=== PATIENT | female | born 1965 | race Caucasian/White ===

== ENCOUNTER → 2019-12-09 07:34 | Outpatient (BNVA) | payer OTHER, SELFPAY | PROVIDERS: PCP Nurse Practitioner Family; Referring Provider Nurse Practitioner Family; Visit Provider Surgery Vascular Surgery | DX: I83.11 Varicose veins of right lower extremity with inflammation (principal) | CPT/HCPCS: 36482 ==

== ENCOUNTER 2019-12-12 15:25 | Outpatient (REF) | payer OTHER, SELFPAY ==
--- NOTE | 2019-12-12 15:39 | US_ITS ---
EXAMINATION: US VENOUS ULTRASOUND WITH DOPPLER LOWER EXTREMITY, RIGHT CLINICAL INFORMATION: Post venaseal procedure COMPARISON: Previous exam September 2019 TECHNIQUE: Ultrasound of the deep veins is performed from the hip to the calf with compression sonography and color and pulse Doppler assessment. Spectral analysis with color-flow imaging is performed. FINDINGS: There is normal venous compression and respiratory variation and augmented flow. The visualized common femoral vein, superficial femoral vein, profunda femoral vein, popliteal vein, and the trifurcation region shows no evidence of deep venous thrombosis. There is echogenic material seen in the right greater saphenous vein 1.4 cm from the saphenofemoral junction post venaseal procedure. There is no significant popliteal fossa cyst. US/US venous duplex LE RT IMPRESSION: No DVT demonstrated in the right lower extremity. Echogenic material in the right greater saphenous vein 1.4 cm from the saphenofemoral junction post venaseal procedure.
== END 2019-12-12 15:26 | disposition home or self-care (01) ==
LOC: HO.US 15:25
PROVIDERS: PCP Nurse Practitioner Family; Visit Provider Surgery Vascular Surgery
DX: M79.604 Pain in right leg (principal); Z98.890 Other specified postprocedural states
CPT/HCPCS: 93971

== ENCOUNTER → 2020-01-02 09:48 | Outpatient (BNVA) | payer OTHER, SELFPAY | PROVIDERS: Visit Provider Surgery Vascular Surgery | DX: Z76.89 Persons encountering health services in other specified circumstances (principal) ==

== ENCOUNTER 2020-04-27 12:49 | Outpatient (REF) | payer OTHER, SELFPAY ==
--- NOTE | ~2020-04-27 | XR_ITS ---
EXAMINATION: XR SHOULDER, RIGHT CLINICAL INFORMATION: Pain COMPARISON: Previous x-ray May 2017 TECHNIQUE: AP external rotation, Grashey, scapular Y, and axillary views of the right shoulder. FINDINGS: Bone alignment is normal. No fracture or dislocation is seen. The glenohumeral joint is normal. There is arthritis at the acromion clavicular joint. Soft tissues are unremarkable. XR/XR shoulder RT min 2V IMPRESSION: Arthritis at the acromioclavicular joint.
== END 2020-04-27 12:50 | disposition home or self-care (01) ==
LOC: HO.XRAY 12:49
PROVIDERS: PCP Family Medicine; Visit Provider Family Medicine
DX: M25.511 Pain in right shoulder (principal)
CPT/HCPCS: 73030

== ENCOUNTER 2021-01-23 09:16 | Outpatient (REF) | payer OTHER, SELFPAY ==
--- NOTE | 2021-01-23 | EMG_ITS ---
This is a 55-year-old woman with a few month history of bilateral upper extremity pain, numbness, and tingling, that has been going on for 6 months. Neurological examination is normal. No Tinel or Phalen sign. IMPRESSION: Carpal tunnel syndrome. Nerve conduction EMG study: Moderate carpal tunnel syndrome bilaterally. Normal EMG of the C5-T1 innervated muscles except for mild chronic neuropathic changes in the abductor pollicis brevis from chronic median neuropathy. MD CAS Vick/ELIANE / [id number]
== END 2021-01-23 09:17 | disposition home or self-care (01) ==
LOC: HO.NEURO 09:16
PROVIDERS: PCP Family Medicine; Visit Provider Family Medicine
DX: R20.0 Anesthesia of skin (principal)
CPT/HCPCS: 95886; 95913

== ENCOUNTER 2021-05-10 12:24 | Outpatient (REF) | payer OTHER, SELFPAY ==
--- NOTE | ~2021-05-10 | MM_ITS ---
EXAMINATION: MM SCREENING DIGITAL BREAST TOMOSYNTHESIS, BILATERAL CLINICAL INFORMATION: Screening. Asymptomatic. The lifetime risk of breast cancer based on the Tyrer-Cuzick Model is 6%. COMPARISON: Mammography: 06/16/2018, 08/19/2016, 02/15/2015 TECHNIQUE: Digital breast tomosynthesis is performed in both the craniocaudal and mediolateral oblique views along with computer-aided detection (CAD). Synthesized 2D images are generated from the tomosynthesis. Additional exaggerated right CC view is provided. FINDINGS: There are scattered areas of fibroglandular density (ACR BI-RADS breast composition Category b). Parenchymal pattern is similar to prior studies. Circumscribed nodules posterior inner and anterior outer right breast are both stable. There is no developing density or architectural abnormality in either breast. No abnormal calcifications. The axilla and skin contours are unremarkable. No significant changes. MM/MM tomosynthesis screening BI IMPRESSION: No mammographic evidence of malignancy. ASSESSMENT: BI-RADS 2: Benign RECOMMENDATION: Routine annual mammography screening. This patient's information was entered into a reminder system with a target due date for their next mammogram.
== END 2021-05-10 12:25 | disposition home or self-care (01) ==
LOC: HO.MAMMO 12:24
PROVIDERS: Visit Provider Family Medicine
DX: Z12.31 Encounter for screening mammogram for malignant neoplasm of breast (principal)
CPT/HCPCS: 77063; 77067

== ENCOUNTER → 2022-02-27 13:59 | Outpatient (BNVA) | payer OTHER, SELFPAY | PROVIDERS: PCP Family Medicine; Visit Provider Surgery Vascular Surgery | DX: Z13.89 Encounter for screening for other disorder (principal) ==

== ENCOUNTER 2022-03-18 08:18 | Outpatient (REF) | payer OTHER, SELFPAY ==
--- NOTE | ~2022-03-18 | US_ITS ---
EXAMINATION: US LOWER EXTREMITY VENOUS (REFLUX EXAM), BILATERAL CLINICAL INDICATION: Chronic venous insufficiency with history of right great saphenous vein ablation. Recurrent varicose veins COMPARISON: 09/26/2021 and 12/12/2019 TECHNIQUE: Color flow triplex imaging and compression Doppler was performed to evaluate both the deep and the superficial systems bilaterally. To evaluate the superficial system, the examination was performed in the upright position. Color-flow Doppler ultrasound and compression ultrasound were utilized. In addition, maneuvers were utilized to demonstrate reflux. FINDINGS: 1. DEEP VENOUS ULTRASOUND OF THE RIGHT LOWER EXTREMITY: Common Femoral Vein: Compressible, normal respiratory variation and augmented flow. Femoral Vein: Compressible, normal color flow and augmentation. Popliteal Vein: Compressible, normal augmentation. Deep Reflux: There is no evidence of reflux in the deep system in either the common femoral vein or the popliteal vein. There is no evidence of a Girard's cyst. 2. SUPERFICIAL ULTRASOUND WITH DOPPLER OF RIGHT LOWER EXTREMITY: GREAT SAPHENOUS VEIN: Saphenofemoral Junction: 0.6 cm; Reflux: 0 ms Proximal Thigh: 0.2 cm; Reflux: 0 ms Mid Thigh: 0.3 cm; Reflux: 0 ms. Reconstituted via a pourer crane ladle vein Above Knee: Occluded At Knee: Occluded Below Knee: 0.4 cm; Reflux: 2772 ms Mid Calf: 0.2 cm; Reflux: 0 ms Ankle: 0.1 cm; Reflux: 0 ms DUPLICATED MEDIAL GREAT SAPHENOUS VEIN: Diameter: None Imaged Reflux: NA DUPLICATED LATERAL GREAT SAPHENOUS VEIN: Diameter: 0.5 cm Reflux: 2164 ms SMALL SAPHENOUS VEIN: Proximal: 0.3 cm; Reflux: 0 ms Distal: 0.3 cm; Reflux: 0 ms VEIN OF GIACOMINI: None Imaged. PERFORATORS: Location: Posterior calf into the small saphenous vein, mid thigh into the great saphenous vein, proximal calf into the varicose veins, mid calf into the great saphenous vein Size: 0.2 to 0.3 cm Reflux: Ranging from 0 ms to 3096 ms VARICOSITIES: Location: Proximal calf Size: 0.4 to 0.5 cm Reflux: 2692 ms to greater than 3000 ms 3. DEEP VENOUS ULTRASOUND OF THE LEFT LOWER EXTREMITY: Common Femoral Vein: Compressible, normal respiratory variation and augmented flow. Femoral Vein: Compressible, normal color flow and augmentation. Popliteal Vein: Compressible, normal augmentation. Deep Reflux: There is no evidence of reflux in the deep system in either the common femoral vein or the popliteal vein. There is no evidence of a Girard's cyst. 4. SUPERFICIAL ULTRASOUND WITH DOPPLER OF LEFT LOWER EXTREMITY: GREAT SAPHENOUS VEIN: Saphenofemoral Junction: 1.0 cm; Reflux: 0 ms Proximal Thigh: 0.9 cm; Reflux: 0 ms Mid Thigh: 0.3 cm; Reflux: 0 ms Above Knee: 0.2 cm; Reflux: 0 ms At Knee: 0.2 cm; Reflux: 0 ms Below Knee: 0.2 cm; Reflux: 0 ms Mid Calf: 0.2 cm; Reflux: 0 ms Ankle: 0.2 cm; Reflux: 0 ms DUPLICATED MEDIAL GREAT SAPHENOUS VEIN: Diameter: None Imaged Reflux: NA DUPLICATED LATERAL GREAT SAPHENOUS VEIN: Diameter: 0.8 cm Reflux: None SMALL SAPHENOUS VEIN: Proximal: 0.2 cm; Reflux: 0 ms Distal: 0.2 cm; Reflux: 0 ms VEIN OF GIACOMINI: None Imaged. PERFORATORS: Location: None significant Size: NA Reflux: NA VARICOSITIES: Location: None Imaged Size: NA Reflux: NA US/US venous duplex LE BI IMPRESSION: Right: Reconstituted flow into the great saphenous vein in the proximal to mid thigh via a pourer crane ladle vein without significant reflux. Reconstituted flow seen into the great saphenous vein in the proximal calf through a larger varicose vein, both of which have severe reflux. There is severe reflux in a lateral duplicated great saphenous vein within the thigh Left: No significant reflux within the great saphenous vein and small saphenous
== END 2022-03-18 08:19 | disposition home or self-care (01) ==
LOC: HO.US 08:18
PROVIDERS: Visit Provider Surgery Vascular Surgery
DX: I83.11 Varicose veins of right lower extremity with inflammation (principal); I83.893 Varicose veins of bilateral lower extremities with other complications
CPT/HCPCS: 93970

== ENCOUNTER → 2022-05-12 14:26 | Outpatient (BNVA) | payer OTHER, SELFPAY | PROVIDERS: PCP Family Medicine; Visit Provider Surgery Vascular Surgery | DX: Z13.89 Encounter for screening for other disorder (principal) ==

== ENCOUNTER 2022-06-24 09:18 | Outpatient (REF) | payer OTHER, SELFPAY ==
--- NOTE | ~2022-06-24 | MM_ITS ---
EXAMINATION: MM SCREENING DIGITAL BREAST TOMOSYNTHESIS, BILATERAL CLINICAL INFORMATION: Screening. Asymptomatic. The lifetime risk of breast cancer based on the Tyrer-Cuzick Model is 5%. COMPARISON: Mammography: 05/10/2021, 06/16/2018, 08/19/2016 TECHNIQUE: Digital breast tomosynthesis is performed in both the craniocaudal and mediolateral oblique views along with computer-aided detection (CAD). Synthesized 2D images are generated from the tomosynthesis. Additional right MLO and left CC views are provided. FINDINGS: There are scattered areas of fibroglandular density (ACR BI-RADS breast composition Category b). Parenchymal pattern is similar to prior studies. There is scattered nodular asymmetry is again seen on the right without developing density or architectural abnormality. There are no abnormal calcifications. No significant mass. The axilla and skin contours are unremarkable. No significant changes from prior exams. MM/MM tomosynthesis screening BI IMPRESSION: No mammographic evidence of malignancy. ASSESSMENT: BI-RADS 2: Benign RECOMMENDATION: Routine annual mammography screening. This patient's information was entered into a reminder system with a target due date for their next mammogram.
== END 2022-06-24 09:19 | disposition home or self-care (01) ==
LOC: HO.MAMMO 09:18
PROVIDERS: PCP Family Medicine; Visit Provider Family Medicine
DX: Z12.31 Encounter for screening mammogram for malignant neoplasm of breast (principal)
CPT/HCPCS: 77063; 77067

== ENCOUNTER → 2022-06-27 07:19 | Outpatient (BNVA) | payer OTHER, SELFPAY | PROVIDERS: PCP Family Medicine; Visit Provider Surgery Vascular Surgery | DX: I83.11 Varicose veins of right lower extremity with inflammation (principal) | CPT/HCPCS: 37765 ==

== ENCOUNTER → 2022-07-10 11:09 | Outpatient (BNVA) | payer OTHER, SELFPAY | PROVIDERS: PCP Family Medicine; Visit Provider Surgery Vascular Surgery ==

== ENCOUNTER 2022-12-01 12:07 | Outpatient (REF) | payer MEDICAID, SELFPAY ==
[2022-12-01 15:08] LABS: Cholesterol 219 mg/dL (<200); HDL Cholesterol 45 mg/dL (>40); LDL Cholesterol Calculated 137 mg/dL (<100); Triglycerides 187 mg/dL (<150)
[2022-12-02 09:29] LABS: ~HepC Num1 0.07 S/CO (0.00-0.79); ~Hepatitis C Antibody Nonreactive (Nonreactive)
== END 2022-12-01 12:08 | disposition home or self-care (01) ==
LOC: HO.CHCLDS 12:07
PROVIDERS: Visit Provider Family Medicine
DX: E66.01 Morbid (severe) obesity due to excess calories (principal); E78.00 Pure hypercholesterolemia, unspecified
CPT/HCPCS: 36415; 80061; 86803

== ENCOUNTER 2022-12-23 19:04 | Outpatient (REF) | payer SELFPAY ==
[2022-12-27 13:43] LABS: HPV mRNA E6/E7 rflx Not Detected (Not Detected)
== END 2022-12-23 19:05 | disposition home or self-care (01) ==
LOC: HO.CHCLNP 19:04
PROVIDERS: Visit Provider Advanced Practice Midwife
DX: Z12.4 Encounter for screening for malignant neoplasm of cervix (principal)
CPT/HCPCS: 87624; 88142

== ENCOUNTER 2023-01-13 11:30 | Outpatient (REF) | payer MEDICAID, SELFPAY ==
[2023-01-13 14:50] LABS: Cholesterol 129 mg/dL (<200); HDL Cholesterol 40 mg/dL (>40); LDL Cholesterol Calculated 64 mg/dL (<100); Triglycerides 126 mg/dL (<150)
== END 2023-01-13 11:31 | disposition home or self-care (01) ==
LOC: HO.CHCLDS 11:30
PROVIDERS: Visit Provider Family Medicine
DX: E78.5 Hyperlipidemia, unspecified (principal)
CPT/HCPCS: 36415; 80061

== ENCOUNTER 2023-01-20 10:20 | Outpatient (REF) | payer MEDICAID, SELFPAY ==
[2023-01-20 14:46] LABS: MANUAL DIFF FLAG NO
[2023-01-20 14:49] LABS: Basophils Percent Auto 0.3 % (0-2); Eosinophils Absolute Auto 0.1 X10*3/uL (0.0-0.4); Eosinophils Percent Auto 1.8 % (0-4); Hematocrit 40.2 % (37.0-47.0); Hemoglobin 12.5 g/dl (12.0-16.0); Imm Gran Abs Auto 0.02 X10*3/uL (0.00-0.03); Imm Gran Pct Auto 0.3 % (0.0-0.4); Lymphocytes Absolute Auto 1.9 X10*3/uL (1.2-4.9); Lymphocytes Percent Auto 24.3 % (20-40); Mean Corpuscular HGB Conc 31.1 g/dl (31.0-35.0); Mean Corpuscular Hemoglobin 27.2 pg (27.0-33.0); Mean Corpuscular Volume 87.4 fL (80.0-98.0); Mean Platelet Volume 10.4 fL (9.4-12.3); Monocytes Absolute Auto 0.5 X10*3/uL (0.1-1.2); Monocytes Percent Auto 6.2 % (2-11); Neutrophils Absolute Auto 5.2 x10*3/uL (2.0-8.3); Neutrophils Percent Auto 67.1 % (45-73); Platelet Count 290 X10*3/uL (160-400); Red Cell Distribution Width 14.1 % (11.0-16.0); White Blood Count 7.8 X10*3/uL (4.8-10.8)
[2023-01-20 15:15] LABS: Alanine Aminotransferase 15 U/L (0-31); Alkaline Phosphatase 68 U/L (39-117); Anion Gap 12 (12-20); Aspartate Amino Transferase 20 U/L (5-31); Bilirubin Total 0.4 mg/dL (0.0-1.0); Blood Urea Nitrogen 30 mg/dL (9-16); Calcium 9.9 mg/dL (8.4-10.2); Carbon Dioxide 25 mmol/L (22-29); Chloride 107 mmol/L (96-108); Cholesterol 137 mg/dL (<200); Estimated Glomerular Filt Rate > 60; Glucose Random 87 mg/dL (60-115); HDL Cholesterol 42 mg/dL (>40); LDL Cholesterol Calculated 68 mg/dL (<100); Potassium 3.4 mmol/L (3.3-5.1); Sodium 141 mmol/L (135-145); Total Protein 7.8 g/dL (6.5-8.0); Triglycerides 138 mg/dL (<150)
== END 2023-01-20 10:21 | disposition home or self-care (01) ==
LOC: HO.CHCLDS 10:20
PROVIDERS: Visit Provider Family Medicine
DX: E78.5 Hyperlipidemia, unspecified (principal)
CPT/HCPCS: 36415; 80053; 80061; 85025

== ENCOUNTER 2023-01-23 11:07 | Outpatient (REF) | payer MEDICAID, SELFPAY ==
--- NOTE | ~2023-01-23 | MM_ITS ---
EXAMINATION: BONE DENSITOMETRY CLINICAL INDICATION: Menopausal and postmenopausal state. COMPARISON: This is the patient's baseline examination. TECHNIQUE: Using a [employer] DXA System (software version: 13.1) manufactured by [employer], dual-energy x-ray absorptiometry was performed of the lumbar spine and left hip. The images are of good technical quality. Summary results are attached. FINDINGS: LEFT FEMUR, NECK: BMD 0.992 g/cm2, Z-score 0.0, T-score -0.3, normal. LEFT FEMUR, TOTAL: BMD 1.035 g/cm2, Z-score 0.2, T-score 0.2, normal. AP SPINE L1-L4: BMD 1.279 g/cm2, Z-score 0.7, T-score 0.8, normal. IDENTIFIED RISK FACTORS: Early menopause, secondary osteoporosis, height loss, hysterectomy, rheumatoid arthritis. HISTORY OF FRACTURE: None listed. MEDICATIONS: Calcium supplements or multivitamin, vitamin D. MM/XR DEXA axial skeleton IMPRESSION: 1. DIAGNOSIS: Normal bone density based on the lowest T-score value of -0.3 in the femoral neck applying World Health Organization criteria. 2. 10-YEAR FRACTURE RISK PREDICTION, FRAX: According to the guidelines, FRAX calculation should only be performed on patients in the osteopenia bone density category. Therefore, FRAX was not performed on this patient. 3. Treatment Recommendations: NOF guidelines recommend consideration for treatment in postmenopausal women and men age 50 and older presenting with the following: -A hip or vertebral (clinical or morphometric) fracture. -T-score less than or equal to -2.5 at the femoral neck or spine after appropriate evaluation to exclude secondary causes. -Low bone mass at the hip or spine and a 10-year fracture probability by FRAX of greater than or equal to 3% for hip fracture or greater than or equal to 20% for major osteoporotic fracture based on the [place] adapted WHO algorithm. 4. Other Recommendations: All treatment decisions require clinical judgment and consideration of individual patient factors, including patient preferences, comorbidities, previous drug use, risk factors not captured in the FRAX model (e.g. frailty, falls, vitamin D deficiency, increased bone turnover, interval significant decline in bone density) and possible under or overestimation of fracture risk by FRAX. FUTURE SCAN RECOMMENDATION: People with diagnosed cases of osteoporosis or at high risk for fracture should have regular bone mineral density tests. For patients eligible for Medicare, routine testing is allowed once every 2 years. The testing frequency can be increased to one year for patients who have rapidly progressing disease, those who are receiving or discontinuing medical therapy to restore bone mass, or have additional risk factors.
== END 2023-01-23 11:08 | disposition home or self-care (01) ==
LOC: HO.MAMMO 11:07
PROVIDERS: Visit Provider Advanced Practice Midwife
DX: Z13.820 Encounter for screening for osteoporosis (principal); Z78.0 Asymptomatic menopausal state
CPT/HCPCS: 77080

== ENCOUNTER 2023-06-30 13:26 | Outpatient (REF) | payer MEDICAID, SELFPAY | END 2023-06-30 13:27 | disposition home or self-care (01) | LOC: HO.MAMMO 13:26 | PROVIDERS: PCP Family Medicine; Visit Provider Family Medicine | DX: Z12.31 Encounter for screening mammogram for malignant neoplasm of breast (principal) | CPT/HCPCS: 77063; 77067 ==

== ENCOUNTER → 2023-06-30 13:45 | Outpatient (BNV) | payer MEDICAID, SELFPAY | PROVIDERS: PCP Family Medicine; Visit Provider Radiology Diagnostic Radiology | DX: Z12.31 Encounter for screening mammogram for malignant neoplasm of breast (principal) | CPT/HCPCS: 77063; 77067 ==

== ENCOUNTER 2023-08-19 12:44 | Outpatient (REF) | payer MEDICAID, SELFPAY ==
[2023-08-19 14:53] LABS: Cholesterol 222 mg/dL (<200); HDL Cholesterol 45 mg/dL (>40); LDL Cholesterol Calculated 149 mg/dL (<100); Triglycerides 144 mg/dL (<150)
== END 2023-08-19 12:45 | disposition home or self-care (01) ==
LOC: HO.CHCLDS 12:44
PROVIDERS: Visit Provider Family Medicine
DX: E78.5 Hyperlipidemia, unspecified (principal)
CPT/HCPCS: 36415; 80061

== ENCOUNTER 2023-09-28 14:08 | Outpatient (REF) | payer MEDICAID, SELFPAY ==
[2023-09-28 17:52] LABS: MANUAL DIFF FLAG NO
[2023-09-28 17:56] LABS: Basophils Percent Auto 0.3 % (0-2); Eosinophils Absolute Auto 0.1 X10*3/uL (0.0-0.4); Eosinophils Percent Auto 1.6 % (0-4); Hematocrit 36.6 % (37.0-47.0); Hemoglobin 11.8 g/dl (12.0-16.0); Imm Gran Abs Auto 0.01 X10*3/uL (0.00-0.03); Imm Gran Pct Auto 0.2 % (0.0-0.4); Lymphocytes Absolute Auto 1.6 X10*3/uL (1.2-4.9); Lymphocytes Percent Auto 24.2 % (20-40); Mean Corpuscular HGB Conc 32.2 g/dl (31.0-35.0); Mean Corpuscular Hemoglobin 27.8 pg (27.0-33.0); Mean Corpuscular Volume 86.3 fL (80.0-98.0); Mean Platelet Volume 10.4 fL (9.4-12.3); Monocytes Absolute Auto 0.4 X10*3/uL (0.1-1.2); Monocytes Percent Auto 6.7 % (2-11); Neutrophils Absolute Auto 4.3 x10*3/uL (2.0-8.3); Platelet Count 271 X10*3/uL (160-400); Red Blood Count 4.24 X10*6/uL (4.20-5.50); Red Cell Distribution Width 14.7 % (11.0-16.0); White Blood Count 6.4 X10*3/uL (4.8-10.8)
[2023-09-28 18:05] LABS: Alanine Aminotransferase 16 U/L (0-31); Albumin Level 3.5 g/dL (3.5-5.0); Alkaline Phosphatase 63 U/L (39-117); Anion Gap 14 (12-20); Aspartate Amino Transferase 18 U/L (5-31); Bilirubin Total 0.2 mg/dL (0.0-1.0); Blood Urea Nitrogen 24 mg/dL (9-16); Calcium 9.3 mg/dL (8.4-10.2); Carbon Dioxide 21 mmol/L (22-29); Chloride 111 mmol/L (96-108); Estimated Glomerular Filt Rate > 60; Glucose Random 71 mg/dL (60-115); Potassium 3.5 mmol/L (3.3-5.1); Sodium 142 mmol/L (135-145); Total Protein 6.9 g/dL (6.5-8.0)
== END 2023-09-28 14:09 | disposition home or self-care (01) ==
LOC: HO.CHCLDS 14:08
PROVIDERS: Visit Provider Family Medicine
DX: E66.01 Morbid (severe) obesity due to excess calories (principal)
CPT/HCPCS: 36415; 80053; 85025

== ENCOUNTER 2024-06-22 12:37 | Outpatient (REF) | payer MEDICAID, SELFPAY ==
--- OUTSIDE RECORDS SUMMARY | 2024-06-22 12:59 | XMS_ITS | Encounter Summary ---
Author Organization [employer] Address [address] [facility] [address] [place] [address] Care Team Providers Care Voice Studies Director Name Role Phone Danelle Wilkerson MD Primary Care Provider Encounter Details Date Type Department Care Team ([facility] st Contact Info) Description 12/24/2022 Abstract [facility] [address] [place] [address] Danelle Wilkerson MD [address] [place], [place] [id number] Social History Tobacco Use Types Packs/Day Years Used Date Smoking Tobacco: Never Passive Smoke Exposure: Never Smokeless Tobacco: Never Alcohol Use Standard Drinks/Week Comments Never 0 (1 standard drink = 0.6 oz pur e alcohol) Depression Answer Date Recorded Patient Health Questionnaire-9 Score 0 09/11/2022 Housing Stability Answer Date Recorded What is your housing situation today? I have olivia mccord 11/24/[address] you li ve. Do you have problems with any of the following? None of the above 11/24/2022 Food Insecurity Answer Date Recorded Within the past 12 months, y ou worried that your food would run out before you got money to buy more: Never True 11/24/2022 Within the past 12 months,th e food you bought just didn't last and you didn't have enough money to get more: Never True Transportation Answer Date Recorded In the past 12 months, has l ack of transportation kept you from medical appts, meetings, work or from getting things needed for daily living? No 11/24/2022 Utilities Answer Date Recorded In the past 12 months, has t he electric, gas, oil or water company threatened to shut off services in your home? No 11/24/2022 Depression Answer Date Recorded Patient Health Questionnaire-2 Score 0 09/11/2022 Comments No Sex and Gender Information Value Date Recorded Sex Assigned at Female 12/09/2021 10:14 AM EDT Legal Sex Female 10:14 AM EDT Gender Identity Female 12/09/2021 10:14 AM EDT Sexual Orientation Choose not to disclose 2021 10:14 AM EDT documented as of this encounter Plan of Treatment Not on file documented as of this encounter Visit Diagnoses Not on filedocumented in this encounter Additional Health Concerns Assessment Noted Time PHQ-9 Depression Total Score: 0 09/12/19 23 2:55 PM EDT documented as of this encounter Care Teams Voice Studies Director Relationship Specialty Start Date End Date Danelle Wilkerson MD [address] [place] [address] PCP - General Family Medicine 10/14/19 documented as of this encounter
--- OUTSIDE RECORDS SUMMARY | 2024-06-22 12:59 | XMS_ITS | Encounter Summary ---
Author Organization [employer] Address [address] [facility] [address] [place] [address] Care Team Providers Care Swat Team Member Name Role Phone Danelle Wilkerson MD Primary Care Provider [phone] Encounter Details Date Type Department Care Team (Latest Contact Info) Description 06/22/2024 Travel Social History Tobacco Use Types Packs/Day Years Used Date Smoking Tobacco: Never Passive Smoke Exposure: Never Smokeless Tobacco: Never Alcohol Use Standard Drinks/Week Comments Never 0 (1 standard drink = 0.6 oz pur e alcohol) Depression Answer Date Recorded Patient Health Questionnaire-9 Score 0 09/11/2022 Housing Stability Answer Date Recorded What is your housing situation today? I have olivianicolle mccord 11/24/[address] you [...] documented as of this encounter Care Teams Swat Team Member Relationship Specialty Start Date End Date Danelle Wilkerson MD [address] [place] [address] PCP - General Family Medicine 10/14/19 documented as of this encounter
--- OUTSIDE RECORDS SUMMARY | 2024-06-22 12:59 | XMS_ITS | Clinical Summary ---
Author Organization [facility] Address [address] [place] [address] Phone Care Team Providers Care Svp [employer] Cooking Name Role Phone Danelle Wilkerson MD Primary Care Provider [phone] Allergies No known active allergies Medications cholecalciferol (VITAMIN D-3) 50 mcg (2,000 unit) tablet Take 1 tablet (2,000 Units total) by mouth 1 (one) time each day. Active lisinopril (PRINIVIL,ZESTRI L) 40 mg tablet Take 1 tablet (40 mg total) by mouth 1 (one) time each day. Active Encounters Date Type Department Care Team Description 06/07/2024 10:00 AM EDT Treatment [address] [phone] Nestor Ryan, QUALITY AND RELIABILITY ENGINEER Left knee pain, unspecified chronicity (Primary Dx) 06/02/2024 10:00 AM EDT Treatment [address] [phone] WhitehallManfred eldridgeca, PT Left knee pain, unspecified chronicity (Primary Dx) 05/31/2024 10:00 AM EDT Treatment [address] [phone] Manfred Gayleca, PT Left knee pain, unspecified chronicity (Primary Dx) 05/26/2024 10:00 AM EDT Treatment [address] [phone] Whitehall Stacy, PT Left knee pain, unspecified chronicity (Primary Dx) 05/24/2024 10:00 AM EDT Treatment [address] [phone] Irwin Stacy, PT Left knee pain, unspecified chronicity (Primary Dx) 05/20/2024 10:00 AM EDT Treatment [address] [phone] Shelby, Enstor, QUALITY AND RELIABILITY ENGINEER Left knee pain, unspecified chronicity (Primary Dx) 05/18/2024 10:30 AM EDT Treatment [address] [phone] Nestor Ryan, QUALITY AND RELIABILITY ENGINEER Left knee pain, unspecified chronicity (Primary Dx) 05/13/2024 12:30 PM EDT Treatment [address] [phone] Chester Alfred, PT Left knee pain, unspecified chronicity (Primary Dx) 05/10/2024 11:30 AM EDT Treatment [address] [phone] Whitehall, Stacy, PT Left knee pain, unspecified chronicity (Primary Dx) 05/03/2024 10:00 AM EDT Evaluation [address] [phone] Jacquelyn Gayleecca, PT Left knee pain, unspecified chronicity (Primary Dx) 05/03/2024 Plan of Care Documentation [address] [phone] from Last 3 Months Medical History Medical History Date Comments Hypertension Obesity (BMI 30-39.9) Blindness left eye category 5, normal vision rig ht eye Social History Tobacco Use Types Packs/Day Years Used Date Smoking Tobacco: Never Smokeless Tobacco: Current Tobacco Cessation:Ready to Q uit: Not Asked; Counseling Given: Not Answered Alcohol Use Standard Drinks/Week Comments Never 0 (1 standard drink = 0.6 oz pur e alcohol) Comments Unknown Sex and Gender Information Value Date Recorded Sex Assigned at Female 03/23/2024 9:32 PM EST Legal Sex Female 1:35 AM EST Gender Identity Female 03/23/2024 9:32 PM EST Sexual Orientation Straight 03/23/2024 9: 32 PM EST Obstetrics History Last Filed Vital Signs Vital Sign Reading Time Taken Comments Blood Pressure 149/75 03/24/2024 8:00 AM EST Pulse 71 03/24/2024 8:00 AM EST Temperature 36.8 ??C (98.2 ??F) 03/24/2024 8:00 AM ES T Respiratory Rate 18 03/24/2024 8:00 AM EST Oxygen Saturation 96% 03/24/2024 8:00 AM EST Inhaled Oxygen Concentration - - Weight 133 kg (294 lb) 03/23/2024 10:36 AM EST Height 165.1 cm (5' 5 ) 03/23/2024 10:36 AM EST Body Mass Index 48.92 03/23/2024 10:36 AM EST Plan of Treatment Upcoming Encounters Date Type Department Care Team (Late st Contact Info) Description 06/24/2024 11:00 AM EDT Treatment [address] [phone] Stacy Gayle, MINDI Health Maintenance Due Date Last Done Comments Breast Cancer Screening 1965 Pneumococcal Vaccine: 50+ Years (1 of 2 - PCV) 1984 Pneumococcal Vaccine: Pediatrics (0 to 5 Years) and At-Risk Patients (6 to 64 Years) (1 of 2 - PCV) 1984 Hepatitis B Vaccines (3 of 3 - 19+ 3-dose series) 07/19/2015 05/24/2015, 02/25/2007 Hepatitis C Screening 01/12/2022 Medicare Annual Wellness Visit 01/12/2022 Social Influencers of Health Screening 01/12/2022 Depression Screening 09/12/2023 09/11/2022 Zoster Vaccines (2 of 2) 09/22/2023 07/28/2023 COVID-19 Vaccine (3 - 2023- season) 2023 11/08/2020, 10/11/2020 Influenza Vaccine (Season Ended) 2024 01/15/2023, 12/24/2020, 12/16/2019, Additional history exists Hypertension/CHF/CAD Annual BMP Blood Test 03/24/2025 03/24/2024 Colorectal Cancer Screening: FIT-DNA (Cologuard) 10/31/2025 10/31/2022 Cervical Cancer Screening: Pap Smear 12/23/2025 12/23/2022 DTaP,Tdap,and Td Vaccines (3 - Td or Tdap) 06/12/2026 06/12/2016, 08/19/1994 Cholesterol Screening (Lipid Panel) 08/18/2028 08/19/2023 RSV Immunization Adult Patients (1 - 1-dose 75+ series) 2040 MMR Vaccines Aged Out 12/16/1996, 08/19/1994 No lo nger eligible based on patient's age to complete this topic Hepatitis A Vaccines Aged Out 02/25/2007 No long er eligible based on patient's age to complete this topic HIV Screening Completed 05/13/2021 HIB Vaccines Aged Out No longer eligi ble based on patient's age to complete this topic HPV Vaccines Aged Out No longer eligi ble based on patient's age to complete this topic IPV Vaccines Aged Out No longer eligi ble based on patient's age to complete this topic Meningococcal ACWY Vaccine Aged Out N o longer eligible based on patient's age to complete this topic Meningococcal B Vaccine Aged Out No l onger eligible based on patient's age to complete this topic RSV Immunization Patients Under 20 months Aged Out No longer eligible based on patient's age to complete this topic Varicella Vaccines Aged Out No longer eligible based on patient's age to complete this topic Procedures Procedure Name Priority Date/Time Associated Diagnosis Comments CREATININE, SERUM Routine 03/24/2024 8:1 6 AM EST from Last 3 Months or Most Recently Relevant to Health Maintenance Results * Creatinine serum (03/24/2024 8:16 AM EST) Creatinine 0.77 0.50 - 1.10 mg/dL LAB CHEMISTRY METHOD 03/24/2024 9:[address] [facility] eGFR 90 >=60 mL/min/1. 73m2 LAB CHEMISTRY METHOD 03/24/2024 9:20 AM EST [facility] Comment:Calculation based on the??Chronic Kidney Disease Epidemiology Collaboration (CKD-EPI) equation refit??without adjustment for race. Blood Venous blood specimen / Unknown Venipuncture / Unknown 03/24/2024 8:16 AM EST 03/24/2024 8:54 AM EST us Monae COMBS LAB BLOOD ORDERABLES Final Resu lt [facility] ([facility]) [facility] [address] [place] [address], from Last 3 Months or Most Recently Relevant to Health Maintenance Insurance MEDICAID - [place] MEDICARE Advance Directives * Full Code - Confirmed (Latest Code Status on File) Date Activated Date Inactivated Comments 03/23/2024 11:17 PM 03/24/2024 2:12 PM This code s tatus was ascertained in the following way: Code status discussion: discussion with patient To update the patient's code status, place a code status order. Do not modify or discontinue any currently active code status orders. Care Teams [employer]ing Relationship Specialty Start Date End Date Danelle Wilkerson MD [address] [place] [id number] PCP - General Family Medicine 03/23/24
--- OUTSIDE RECORDS SUMMARY | 2024-06-22 12:59 | XMS_ITS | Encounter Summary ---
Author Organization [employer] Address [address] [facility] [address] [place] [address] Care Team Providers Care Net Software Architect Name Role Phone Danelle Wilkerson MD Primary Care Provider [phone] Encounter Details Date Type Department Care Team ([facility] st Contact Info) Description 07/24/2023 Orders Only [facility]EDS [address], [place] [phone] Mark Evans MD [address] [place] [address] Social History Tobacco Use Types Packs/Day Years [...] documented as of this encounter Care Teams Net Software Architect Relationship Specialty Start Date End Date Danelle Wilkerson MD [address] [place] [address] PCP - General Family Medicine 10/14/19 documented as of this encounter
--- OUTSIDE RECORDS SUMMARY | 2024-06-22 12:59 | XMS_ITS | Encounter Summary ---
Author Organization [employer] Address [address] [facility] [address] [place] [address] Care Team Providers Care Rubberizing Mechanic Name Role Phone Danelle Wilkerson MD Primary Care Provider [phone] Encounter Details Date Type Department Care Team ([facility] st Contact Info) Description 06/22/2024 11:30 AM EDT Office Visit [facility] [address] [place], [place] [phone] Danelle Wilkerson MD [address] [place], [place] [phone] Screening examination for STD (sexually transmitted disease) (Primary Dx); Morbid obesity (CMS/HCC); Seasonal allergies Social History Tobacco Use Types Packs/Day Years [...] AM EDT documented as of this encounter Last Filed Vital Signs Vital Sign Reading Time Taken Comments Blood Pressure 134/72 06/22/2024 11:46 AM EDT Pulse 82 06/22/2024 11:46 AM EDT Temperature 36.2 ??C (97.2 ??F) 06/22/2024 11:46 AM E DT Respiratory Rate 20 06/22/2024 11:46 AM EDT Oxygen Saturation 97% 06/22/2024 11:46 AM EDT Inhaled Oxygen Concentration - - Weight 134 kg (295 lb 3.2 oz) 06/22/2024 11:46 A M EDT Height 162.6 cm (5' 4 ) 06/22/2024 11:46 AM EDT Body Mass Index 50.67 06/22/2024 11:46 AM EDT documented in this encounter Plan of Treatment Scheduled Orders Name Type Priority Associated Diagnoses Orde r Schedule HIV-1/2 Antigen and Antibodies, Fourth Generation, with Reflexes Lab Routine Screening examination for STD (sexually transmitted disease) Expected: 06/22/2024 (Approximate), Expires: 06/22/2025 Hepatitis C Antibody with Reflex to HCV, RNA, Quantitative, Real-Time PCR Lab Routine Screening examination for STD (sexually transmitted disease) Expected: 06/22/2024, Expires: 06/22/2025 Chlamydia/N. Gonorrhoeae RNA, TMA, Urogenitial Microbiology Routine Screening examination for STD (sexually transmitted disease) Ordered: 06/22/2024 Syphilis Screen Lab Routine Screening examination for STD (sexually transmitted disease) Expected: 06/22/2024, Expires: 06/22/2025 Hepatitis B Core Antibody, Total Lab Routine Screening examination for STD (sexually transmitted disease) Expected: 06/22/2024 (Approximate), Expires: 06/22/2025 Hepatitis B Surface Antibody, Qualitative Lab Routine Screening examination for STD (sexually transmitted disease) Expected: 06/22/2024 (Approximate), Expires: 06/22/2025 Hepatitis B Surface Antibody, Qualitative Lab Routine Screening examination for STD (sexually transmitted disease) Expected: 06/22/2024 (Approximate), Expires: 06/22/2025 Varicella Zoster Antibody, IgG Lab Routine Screening examination for STD (sexually transmitted disease) Expected: 06/22/2024 (Approximate), Expires: 06/22/2025 documented as of this encounter Visit Diagnoses Diagnosis Screening examination for STD (sexually transmitted disease)- Primary Morbid obesity (CMS/HCC) Morbid obesity Seasonal allergies Allergic rhinitis, cause unspecified documented in this encounter Additional Health Concerns Assessment Noted Time PHQ-9 Depression Total Score: 0 09/12/19 23 2:55 PM EDT documented as of this encounter Care Teams Rubberizing Mechanic Relationship Specialty Start Date End Date Danelle Wilkerson MD [address] [place] [id number] PCP - General Family Medicine 10/14/19 documented as of this encounter
--- OUTSIDE RECORDS SUMMARY | 2024-06-22 12:59 | XMS_ITS | Clinical Summary ---
Author Organization [facility] Address [address] [place] [address] 7[address] [place] [address] Care Team Providers Care Executive Compensation Analyst Name Role Phone Danelle Wilkerson MD Primary Care Provider [phone] Allergies Active Allergy Reactions Criticality Noted Date Comments Chocolate Hazelnut Flavoring Agent (Non-Screening) Swelling,Cough 03/08/2024 Oxycodone-Acetaminophen 01/20/2022 Other reaction(s): hallucinations Medications Multiple Vitamins-Minera ls (Centrum Adults) tablet Take 1 tablet by mouth at bed time. 2 Active estradiol (Estrace) 0.1 MG/GM vaginal cream Insert 1 g into the vagina. 2 Active albuterol 108 (90 Base) MCG/ACT inhaler Inhale 2 puffs in the morning, at noon, in the evening, and at bedtime. 18 g 2 3 Active triamcinolone (Kenalog) 0.1 % creamIndication s:Xerosis of skin Apply topically if needed in the morning and at bedtime (pain and swelling). Mix with Cerave 80 g 2 4 Active acetaZOLAMIDE (Diamox) 500 MG 12 hr capsule TAKE 1 CAPSULE BY MOUTH TWICE A DAY 180 capsule 1 4 Active tiZANidine (Zanaflex) 4 MG tablet Take 1 tablet (4 mg) by mouth every 6 (six) hours if needed for muscle spasms for up to 10 days. 30 tablet 4 Active Krill Oil (Lewisberry-3) 500 MG capsule TAKE 1 CAPSULE BY MOUTH EVERY DAY 90 capsule 1 4 Active D3 50 MCG (2000 UT) tablet TAKE 1 TABLET BY MOUTH EVERY DAY *OTC N/C* 90 tablet 3 4 Active lisinopril 40 MG tablet TAKE 1 TABLET BY MOUTH EVERY DAY 90 tablet 1 4 Active Tirzepatide-Marino ght Management (Zepbound) 2.5 MG/0.5ML solution auto-injector Inject 0.5 mL (2.5 mg) under the skin 1 (one) time per week. 2 mL 1 5 Active cetirizine (ZyrTEC) 10 MG tablet Take 1 tablet (10 mg) by mouth Once per day. 30 tablet 5 5 12/20/19 25 Active Semaglutide-Marino ght Management (Wegovy) 0.25 MG/0.5ML solution auto-injector Inject 0.25 mg under the skin 1 (one) time per week. 2 mL 4 06/23/19 25 Discontinu ed(Therapy completed) Myrbetriq 25 MG 24 hr tablet Take 1 tablet by mouth Once per day. 5 06/23/19 25 Discontinu ed(Therapy completed) Active Problems Problem Noted Date Diagnosed Date Screening examination for ST D (sexually transmitted disease) 06/22/2024 Seasonal allergies 06/22/2024 Acute intractable headache 07/24/2023 Upper back pain on right side 10/23/2022 History of anemia 09/11/2022 Arthritis 01/20/2022 Female cystocele 01/20/2022 Morbid obesity 01/20/2022 Assessment & Plan (09/28/2023 5:13 PM EDT): Discussed calorie deficit, recommended reduction of 20-30% of maintenance calories; brewery technician referral offered. Recommended to decrease soda and sugary beverage consumption. Recommended at least 20 g per meal of protein to assist with satiety. Recommended at least 150 min/week of moderate intensity exercise. Pending Pearl COMBS. Assessment & Plan (07/27/2023 12:41 PM EDT): Discussed calorie deficit, recommended reduction of 20-30% of maintenance calories; brewery technician referral offered. Recommended to decrease soda and sugary beverage consumption. Recommended at least 20 g per meal of protein to assist with satiety. Recommended at least 150 min/week of moderate intensity exercise. Started application process for: -Semaglutide-Weight Management (Wegovy) 0.25 MG/0.5ML solution auto-injector Assessment & Plan (10/23/2022 2:27 PM EDT): Discussed calorie deficit, recommended reduction of 20-30% of maintenance calories; brewery technician referral offered. Recommended to decrease soda and sugary beverage consumption. Recommended at least 20 g per meal of protein to assist with satiety. Recommended at least 150 min/week of moderate intensity exercise. Assessment & Plan (04/15/2022 11:09 AM EST): Discussed calorie deficit, recommended reduction of 20-30% of maintenance calories; brewery technician referral offered. Recommended to decrease soda and sugary beverage consumption. Recommended at least 20 g per meal of protein to assist with satiety. Recommended at least 150 min/week of moderate intensity exercise. Assessment & Plan (01/20/2022 4:53 PM EST): Declined referral to nutrition &/or bariatric center. Given BMI of 50.98 kg/m, she will benefit of multimodal approach. Her insurance will likely not cover a GLP-1 agonist, but we can trial phen/topamax. Discussed s/e: tachycardia, HTN (controlled BP, needs to monitor), cognitive dysfunction, metabolic acidosis, constipation, dysguesia Arthritis of right knee 01/20/2022 Assessment & Plan (07/27/2023 12:17 PM EDT): Strongly recommended patient weight loss, we could retrial steroid injection but this is a permanent solution. Assessment & Plan (04/15/2022 11:10 AM EST): Strongly recommended patient weight loss, we could retrial steroid injection but this is a permanent solution. Assessment & Plan (01/20/2022 4:50 PM EST): Reports seen by ortho who told her she has severe OA. Recommended wt loss. Reports relief of symptoms with steroid injection but only lasted for 1 month. Reports ok relief with diclofenac, declined bariatric referral. Will trial pharmacotherapy and f/u in 4 weeks. Asthma 10/13/2014 History of hysterectomy for benign disease 02/24 Benign intracranial hypertension 04/05/2013 Gastroesophageal reflux disease 04/05/2013 Visual impairment 10/04/2012 Hyperlipidemia 08/12/2011 Assessment & Plan (09/28/2023 2:01 PM EDT): Lab work on 08/19/2023 shows elevated cholesterol. Possibly due to discontinuing Lewisberry supplement. Prescribing Krill Oil to aid with cholesterol. Discussed refills as needed. Ordering lab work for recheck. Relevant Medications Krill Oil (Lewisberry-3) 500 mg capsule Assessment & Plan (01/15/2023 3:53 PM EST): Patient will be sent for labs for further evaluation. -Labs: CBC, Comp. Met. Panel, Lipid Pane Osteoarthrosis, localized, s econdary, involving ankle and foot 08/12/2011 Essential hypertension 08/05/2011 Assessment & Plan (10/23/2022 2:27 PM EDT): Patient's bloop pressure was controlled. Follow up in 6 months. Obesity 08/05/2011 Varicose veins of lower extremity 08/05/2011 Backache 02/10/2004 Resolved Problems Problem Noted Date Diagnosed Date Resolved Date Watery diarrhea 09/11/2022 10/23/2022 Assessment & Plan (10/09/2022 8:40 AM EDT): Recommended BRAT diet and supportive care. No red signs, rtc if no improvement Encounters Date Type Department Care Team Description 06/22/2024 11:30 AM EDT Office Visit [facility] [address] [place] [address] Danelle Wilkerson MD Screening examination for STD (sexually transmitted disease) (Primary Dx); Morbid obesity (CMS/HCC); Seasonal allergies 06/22/2024 Travel 06/14/2024 Patient Outreach [facility] [address] [place] [address] Danelle Wilkerson MD Pre-visit Planning (Pre visit planning LVM ) from Last 3 Months Immunizations Immunization Administration Dates Next Due Hep A, Adult 02/25/2007 Hep B, adult 05/24/2015,02/25/2007 Influenza Injectable Quadriv alant Preservative Free IIV4 MDCK 11/18/2017 Influenza injectable quadriv alent preservative free 01/15/2023,12/24/2020,12/16/2019,2016,11/30/2014 Influenza, IIV3, injectable 12/02/2010 MMR 12/16/1996,08/19/1994 TD (adult), 2 Lf tetanus tox oid, preservative free, adsorbed 08/19/1994 Tdap 06/12/2016 Zoster, Recombinant 07/28/2023 Zoster, live 07/28/2023 Family History Medical History Relation Name Comments Uterine cancer Mother Lung cancer Mother's Sister Relation Name Status Comments Mother Mother's Sister Social History Tobacco Use Types Packs/Day Years [...] not to disclose 2021 10:14 AM EDT Last Filed Vital Signs Vital Sign Reading [...] Mass Index 50.67 06/22/2024 11:46 AM EDT Plan of Treatment Health Maintenance Due Date Last Done Comments CT Colonography 1965 Colonoscopy 1965 FIT 1965 FOBT 1965 Sigmoidoscopy 1965 Alcohol/Substance Use Screening 1977 Pneumococcal Vaccine: 50+ Years (1 of 2 - PCV) 1984 Hepatitis B Vaccines (3 of 3 - 19+ 3-dose series) 07/19/2015 05/24/2015, 02/25/2007 Depression Screening 09/12/2023 09/11/2022, 09/12/19 23 SDOH Screening 09/12/2023 09/11/2022 Zoster Vaccines (3 of 3) 09/22/2023 07/28/2023, 07/10 COVID-19 Vaccine (2023- season) 2023 11/08/2020, 10/11/2020 Influenza Vaccine (#1) 2023 3, 12/24/2020, 12/16/2019, Additional history exists Tobacco Screening 06/22/2025 06/22/2024 Mammogram 06/29/2025 06/30/2023, 06/09, 05/10/2021, Additional history exists Colorectal Cancer Screening 10/31/2025 FIT DNA/Cologuard 10/31/2025 10/31/2022 DTaP/Tdap/Td Vaccines (2 - Td or Tdap) 06/12/2026 06/12/2016, 08/19/1994 Cervical Cancer Screening 12/24/2027 HPV/Cotest 12/24/2027 12/23/2022 Pap Smear 12/24/2027 12/23/2022 Lipid Panel 08/18/2028 08/19/2023, 01/09, 01/13/2023, Additional history exists RSV Patients and Patients Aged 60 years or older (1 - 1-dose 75+ series) 2040 Hepatitis A Vaccines Aged Out 02/25/2007 No long er eligible based on patient's age to complete this topic HIV Screening Completed 05/13/2021, 01/04/2020 Hepatitis C Screening Completed 12/01/2022 , 05/13/2021, 01/04/2020 HIB Vaccines Aged Out No longer eligi [...] patient's age to complete this topic Meningococcal Vaccine Aged Out No merced joao eligible based on patient's age to complete this topic RSV under 20 months Aged Out No longe r eligible based on patient's age to complete this topic Rotavirus Vaccines Aged Out No longer eligible based on patient's age to complete this topic Procedures Procedure Name Priority Date/Time Associated Diagnosis Comments LIPID PANEL, STANDARD Routine 08/19/2023 12:50 PM EDT Hyperlipidemia, unspecified hyperlipidemia type BI MAMMOGRAM SCREENING TOMOSYNTHESIS BILATERAL Routine 06/30/2023 1:50 PM EDT HPV MRNA E6/E7 REFLEX TO HPV 16, 18/45 Routine 12/23/2022 1:54 PM EST PAP SMEAR Routine 12/23/2022 1:54 PM EST HEPATITIS C ANTIBODY Routine 12/01/2022 12:10 PM EDT Morbid obesity (CMS/HCC) LAB COLOGUARD?? COLON CANCER SCREEN Routine 10/31/2022 6:30 AM EDT Colon cancer screening HIV 1/2 ANTIGEN/ANTIBODY, FOURTH GENERATION W/RFL Routine 05/13/2021 12:00 AM EDT from Last 3 Months or Most Recently Relevant to Health Maintenance Results * (ABNORMAL) Lipid Panel, Standard (08/19/2023 12:50 PM EDT) Triglycerides 144 <150 mg/dL [facility] Comment:Desirable Triglyceri de: less than 150 mg/dLBorderline High Triglyceride 150-199 mg/dLHigh Triglyceride: 200-499 mg/dLVery High Triglyceride: greater than or equal to 5OO mg/dL Cholesterol 222(H) <200 mg/dL [facility] Comment:Desirable Cholestero l: less than 200 mg/dLBorderline High Cholesterol: 200-239 mg/dLHigh Cholesterol: greater than 239 mg/dL LDL Cholesterol Calculated 149(H) <100 mg/dL [facility] Comment:Desirable LDL: less than 100 mg/dLNear Optimal/Above Optimal LDL: 110- 129 mg/dLBorderline High LDL: 130-159 mg/dLHigh LDL: 160-189 mg/dLVery High LDL: greater than or equal to 190 mg/dL HDL Cholesterol 45 >40 mg/dL [facility] Comment:Desirable HDL: great er than 40 mg/dL Note: This HDL assay may give artificially low results in patients with liver disease. Blood Venous blood specimen / Unknown 08/19/2023 12:50 PM EDT 08/19/2023 1:59 PM EDT us Danelle Wilkerson MD LAB BLOOD ORDERABLES Final Re sult [facility] [address] [place] [address] [phone] * BI Mammogram Screening Tomosynthesis Bilateral (06/30/2023 1:50 PM EDT) Anatomical Region Laterality Modality Breast Bilateral Mammography 06/30/2023 1:50 PM EDT Narrative 07/31/2023 8:38 AM EDT ? [facility] ? [address] ?[place], [place] [address] ? Mammography Report ? Signed ? Patient: Negroni,Millicent ?MR#: [id number] ?? 050 ? : 1965 ?Acct:[id number] ? Age/Sex: 58 / F ?ADM Date: 06/30/23 ? Loc: HO.MAMMO ? Attending Dr: Danelle Wilkerson MD ? Ordering Physician: Danelle Wilkerson MD ?Results: 1Nega ?? tive ? Date of Service: 06/30/23 ?Follow Up: 1 Year From Orig ?? inal Mammogram ? Procedure(s): MM tomosynthesis screening BI ?? Accession Number(s): [id number] ? cc: Danelle Wilkerson MD ? EXAMINATION: ?? MM SCREENING DIGITAL BREAST TOMOSYNTHESIS, BILATERAL ? CLINICAL INFORMATION: ? Screening. Asymptomatic. ? COMPARISON: ?? Mammography: This study is compared with prior exams dating back to ?? 2019. ? TECHNIQUE: ?? Digital breast tomosynthesis is performed in both the craniocaudal and ?? mediolateral oblique views along with computer-aided detection (CAD). ?? Synthesized 2D images are generated from the tomosynthesis. ? FINDINGS: ?? The breasts are almost entirely fatty (ACR BI-RADS breast composition ?? Category a). ? There are no significant masses, abnormal calcifications, or other ?? abnormalities. ? MM/MM tomosynthesis screening BI ?? IMPRESSION: ?? No mammographic evidence of malignancy. ? ASSESSMENT: ? BI-RADS BI-RADS 1 - Negative ? RECOMMENDATION: ?? Routine annual mammography screening. ? 1 year F/U ? This examination should not preclude the clinical evaluation of a ?? suspicious palpable abnormality. ? This patient's information was entered into a reminder system with a ?? target due date for their next mammogram. ? Dictated By: ?Jaida Rivera MD ? Signed By: ?<Electronically signed by Jaida Rivera MD in OV> ? 07/31/23 0835 ? DD/ 1350 ? TD/TT: ? Bit Shaver: ? Procedure Note Donkaleighter, Image - 07/31/2023 [place] [facility] [address] [place] [address] Mammography Report Signed Patient: Niles Swain#: [id number] 050 : 1965Acct:[id number] Age/Sex: 58 / FADM Date: 06/30/23 Loc: HO.MAMMO Attending Dr: Danelle Wilkerson MD Ordering Physician: Danelle Wilkerson MDResults: 1Nega tive Date of Service: 06/30/23Follow Up: 1 Year From Orig inal Mammogram Procedure(s): MM tomosynthesis screening BI Accession Number(s): [id number] cc: Danelle Wilkerson MD EXAMINATION: MM SCREENING DIGITAL BREAST TOMOSYNTHESIS, BILATERAL CLINICAL INFORMATION: Screening. Asymptomatic. COMPARISON: Mammography: This study is compared with prior exams dating back to 2019. TECHNIQUE: Digital breast tomosynthesis is performed in both the craniocaudal and mediolateral oblique views along with computer-aided detection (CAD). Synthesized 2D images are generated from the tomosynthesis. FINDINGS: The breasts are almost entirely fatty (ACR BI-RADS breast composition Category a). There are no significant masses, abnormal calcifications, or other abnormalities. MM/MM tomosynthesis screening BI IMPRESSION: No mammographic evidence of malignancy. ASSESSMENT: BI-RADS BI-RADS 1 - Negative RECOMMENDATION: Routine annual mammography screening. 1 year F/U This examination should not preclude the clinical evaluation of a suspicious palpable abnormality. This patient's information was entered into a reminder system with a target due date for their next mammogram. Dictated By: Jaida Rivera MD Signed By: <Electronically signed by Jaida Rivera MD in OV> 07/31/23 0835 DD/ 1350 TD/TT: Bit Shaver: Danelle Wilkerson MD IMG BI PROCEDURES Final Resul t * HPV mRNA E6/E7 w/Reflex to HPV Genotypes 16, 18/45 (12/23/2022 1:54 PM EST) HPV nRNA E6/E7 Not Detected Not Detected [facility] Comment:Methodology: Transcr iption-Mediated AmplificationThis assay detects E6/E7 viral messenger RNA (mRNA) from 14high-risk HPV types (16,18,31,33,35,39,45,51,52,56,58,59,66,68).Cervical sources are required for HPV testing.If a vaginal source from a patient who has had atotal hysterectomy with removal of cervix wassubmitted, please contact the testing laboratoryfor alternative testing options.For additional information, please refer tohttp://education.thereNow/faq/XLP324a6(This link if provided for information/educational purposes only.)THIS TEST WAS PERFORMED AT:[facility] [place] [phone] SANDERS MD HPV mRNA E6/E7 TNP [facility] HPV [facility] HPV 18/45 RNA [facility] 12/23/2022 1:54 PM EST 12/24/2022 7:30 AM EST us Risa Chi [facility] CYTOLOGY ORDERABLES F inal Result [facility] [address] [place] [address] [phone] * Pap Smear (12/23/2022 1:54 PM EST) 12/23/2022 1:54 PM EST 12/24/2022 7:30 AM EST Narrative [facility] - 01/09/2023 1:39 PM EST ----- ------- Name: Millicent Swain ?Age/Sex: 57/F ? : 1965 Unit#: [id number] ?? Attend Dr: RISA CHI CNM ?Re12/23/22 ?Status: DEP REF ? Location: HO.CHCLNP ? Disch: ? ----- ------- SPEC : [id number] ?RECD: 12/24/22 ? STATUS: ??SOUT ? REQ NUM: [id number] ? BRIANNA: 12/23/226456 ? SUBM DR: RISA CHI CNM ? ENTERED: ??12/24/221010 ?SP TYPE: Pap Smr ?OTHR DR: ? ORDERED: ??Pap Smear ? Interpretation ?? Satisfactory for evaluation. ?? Coccobacilli consistent with shift in vaginal kevin. ?? Negative for intraepithelial lesion or malignancy. ?HPV mRNA E6/E7: ?NOT DETECTED ? This assay detects E6/E7 viral messenger RNA (mRNA) from 14 high-risk HPV types (16, 18, ?? 31, 33, 35, 39, 45, 51, 52, 56, 58, 59, 66, 68) ?? HPV testing performed by [facility], [place], [place]. ??See reference laboratory ?? portion of the EMR for entire report. ?Clinical Information LMP: Unknown date Previous PAP test: Unknown date/findings Other surgery: s/p hysterectomy ? Material Received ?? ThinPrep-Vaginal ----- ------- Signed (signature on file) ABILIO Currie ([facility]) 01/09/23 1339 ? ----- ------- ? END OF REPORT ? us Risa Chi CNM LAB CYTOLOGY ORDERABLES F inal Result Performing Organization Address [facility] de Phone Number [facility] [address] [place] [address] [phone] * Hepatitis C Ab (12/01/2022 12:10 PM EDT) [facility] Hepatitis C Antibody Nonreactive Nonreactive [facility] Comment:Antibodies to HCV no t detected; does not exclude early acuteHCV infection. Blood 12/01/2022 12:1 0 PM EDT 12/01/2022 2:43 PM EDT us Danelle Wilkerson MD LAB BLOOD ORDERABLES Final Re sult Performing Organization Address [facility] Co de Phone Number [facility] [address], [place] [phone] * Cologuard?? colon cancer screening (10/31/2022 6:30 AM EDT) [facility] Cologuard Result Negative Negative 11/06/19 8:00 PM EDT [facility] (CLIA #:[id number]) Comment: NEGATIVE TEST RESULT. A negative Cologuard result indicates a low likelihood that a colorectal cancer (CRC) or advanced adenoma (adenomatous polyps with more advanced pre-malignant features) ??is present. The chance that a person with a negative Cologuard test has a colorectal cancer is less than 1 in 1500 (negative predictive value >99.9%) or has an ??advanced adenoma is less than ??5.3% (negative predictive value 94.7%). These data are based on a prospective cross-sectional study of 10,000 individuals at average risk for colorectal cancer who were screened with both Cologuard and colonoscopy. (Dani Miranda. et al, N Engl J Med 2014;370(14):1286- 1297) The normal value (reference range) for this assay is negative. COLOGUARD RE-SCREENING RECOMMENDATION: Periodic colorectal cancer screening is an important part of preventive healthcare for asymptomatic individuals at average risk for colorectal cancer. ??Following a negative Cologuard result, the [place] [employer] Society and U.S. Multi-Society Task Force screening guidelines recommend a Cologuard re-screening interval of 3 years. References: [place] [employer] Guideline for Colorectal Cancer Screening: https://www.cancer.org/cancer/yclai-dwnljm-zjhuzh/pcbaewrij-ooixuombt-sxtcdem/ac s-rec ommendations.html.; Edgardo SINHA, Flory JOLLEY, Mejia Dos SantosK, Colorectal Cancer Screening: Recommendations for Physicians and Patients from the U.S. Multi-Society Task Force on Colorectal Cancer Screening , Am J Gastroenterology 2017; 112:4134-5864. TEST DESCRIPTION: Composite algorithmic analysis of stool DNA-biomarkers with hemoglobin immunoassay. ?? Quantitative values of individual biomarkers are not reportable and are not associated with individual biomarker result reference ranges. Cologuard is intended for colorectal cancer screening of adults of either sex, 45 years or older, who are at average-risk for colorectal cancer (CRC). Cologuard has been approved for use by the U.S. FDA. The performance of Cologuard was established in a cross sectional study of average-risk adults aged 50-84. Cologuard performance in patients ages 45 to 49 years was estimated by sub-group analysis of near-age groups. Colonoscopies performed for a positive result may find as the most clinically significant lesion: colorectal cancer [4.0%], advanced adenoma (including sessile serrated polyps greater than or equal to 1cm diameter) [20%] or non- advanced adenoma [31%]; or no colorectal neoplasia [45%]. These estimates are derived from a prospective cross-sectional screening study of 10,000 individuals at average risk for colorectal cancer who were screened with both Cologuard and colonoscopy. (Dani Archer et al, N Engl J Med 2014;370(14):7099-1047.) Cologuard may produce a false negative or false positive result (no colorectal cancer or precancerous polyp present at colonoscopy follow up). A negative Cologuard test result does not guarantee the absence of CRC or advanced adenoma (pre-cancer). The current Cologuard screening interval is every 3 years. ([place] [employer] and U.S. Multi-Society Task Force). Cologuard performance data in a 10,000 patient pivotal study using colonoscopy as the reference method can be accessed at the following location: www.Electric Imp/results. Additional description of the Cologuard test process, warnings and precautions can be found at www.Pl[employer] Mediard.com. Stool specimen (specimen) 10/31/2022 6:30 AM EDT 11/02/2022 3:06 AM EDT Danelle Wilkerson MD LAB MOLECULAR DIAGNOSTICS ORD ERABLES Final Result [facility] [facility] (CLIA #:[id number]) [address] [place] [address] [place] [address], * HIV 1/2 ANTIGEN/ANTIBODY,FOURTH GENERATION W/RFL (05/13/2021 12:00 AM EDT) HIV-1/2 ANTIGEN AND ANTIBODIES, 4TH GENERATION W/ REFLEX NON-REACT REANNA NON-REACT REANNA [facility] Comment: HIV-1 antigen and HIV-1/HIV-2 antibodies were not detected. There is no laboratory evidence of HIV infection. ?? PLEASE NOTE: This information has been disclosed to you from records whose confidentiality may be protected by state law. ??If your state requires such protection, then the state law prohibits you from making any further disclosure of the information without the specific written consent of the person to whom it pertains, or as otherwise permitted by law. A general authorization for the release of medical or other information is NOT sufficient for this purpose. ? For additional information please refer to http://[employer].thereNow/faq/DXE714 (This link is being provided for informational/ educational purposes only.) ? The performance of this assay has not been clinically validated in patients less than 2 years old. ?? 05/13/2021 us Danelle Wilkerson MD LAB BLOOD ORDERABLES Final Re sult [facility] [address] from Last 3 Months or Most Recently Relevant to Health Maintenance Insurance MEDICARE [facility] STANDARD * Guarantor: Millicent Swain Account Type Relation to Patient Date of Phone Billing Address Personal/Family Self [address] [id number] Care Teams Executive Compensation Analyst Relationship Specialty Start Date End Date Danelle Wilkerson MD [address] [place] [id number] PCP - General Family Medicine 10/14/19
[2024-06-22 22:04] LABS: CT PCR NOT DETECTED (Not Detect.); NG PCR NOT DETECTED (Not Detect.)
[2024-06-23 07:49] LABS: Syphilis Screen Nonreactive (Nonreactive)
[2024-06-23 08:01] LABS: HBS Num1 0.88 mIU/mL (0-7.99); HBc Num1 0.25 S/CO (0.00-0.79); HIV AB/AG Nonreactive (Nonreactive); Hepatitis B Core Antibody Nonreactive (Nonreactive); ~Hepatitis B Surface Antibody NONREACTIVE (Nonreactive); ~Hepatitis C Antibody Nonreactive (Nonreactive)
== END 2024-06-22 12:38 | disposition home or self-care (01) ==
LOC: HO.CHCLDS 12:37
PROVIDERS: Visit Provider Family Medicine
DX: Z11.3 Encounter for screening for infections with a predominantly sexual mode of transmission (principal)
CPT/HCPCS: 36415; 86704; 86706; 86780; 86787; 86803; 87389; 87491; 87591

== ENCOUNTER 2024-07-05 12:59 | Outpatient (REF) | payer MEDICAID, SELFPAY ==
--- OUTSIDE RECORDS SUMMARY | 2024-07-05 13:02 | XMS_ITS | Clinical Summary ---
Author Organization [facility] Address [address] [place] [address] Phone Care Team Providers Care Sizing Machine And Drier Operator Name Role Phone Danelle Wilkerson MD Primary Care Provider [phone] Allergies No known active allergies Medications cholecalciferol (VITAMIN D-3) 50 mcg (2,000 unit) tablet Take 1 tablet (2,000 Units total) by mouth 1 (one) time each day. Active lisinopril (PRINIVIL,ZESTRI L) 40 mg tablet Take 1 tablet (40 mg total) by mouth 1 (one) time each day. Active Encounters Date Type Department Care Team Description 06/24/2024 11:00 AM EDT Treatment [address] [phone] Stacy Gayle, PT Left knee pain, unspecified chronicity (Primary Dx) 06/07/2024 10:00 AM EDT Treatment [facility] [address] [phone] Shelby, Nestor, VET TECH Left knee pain, unspecified chronicity (Primary Dx) 06/02/2024 10:00 AM EDT Treatment [address] [phone] Stacy Gayle, PT Left knee pain, unspecified chronicity (Primary Dx) 05/31/2024 10:00 AM EDT Treatment [address] [phone] Washburn, Stacy, PT Left knee pain, unspecified chronicity (Primary Dx) 05/26/2024 10:00 AM EDT Treatment [address] [phone] Washburn, Stacy, PT Left knee pain, unspecified chronicity (Primary Dx) 05/24/2024 10:00 AM EDT Treatment [address] [phone] Washburn, Stacy, PT Left knee pain, unspecified chronicity (Primary Dx) 05/20/2024 10:00 AM EDT Treatment [address] [phone] Nestor Ryan, VET TECH Left knee pain, unspecified chronicity (Primary Dx) 05/18/2024 10:30 AM EDT Treatment [address] [phone] Nestor Ryan, VET TECH Left knee pain, unspecified chronicity (Primary Dx) 05/13/2024 12:30 PM EDT Treatment [address] [phone] Chester Alfred, PT Left knee pain, unspecified chronicity (Primary Dx) 05/10/2024 11:30 AM EDT Treatment [address] [phone] Washburn, Stacy, PT Left knee pain, unspecified chronicity (Primary Dx) 05/03/2024 10:00 AM EDT Evaluation [address] [phone] Irwin, Stacy, PT Left knee pain, unspecified chronicity (Primary Dx) 05/03/2024 Plan of Care Documentation [address] [phone] from Last 3 Months Medical History Medical [...] 03/23/2024 10:36 AM EST Plan of Treatment Health Maintenance Due Date Last Done Comments Breast Cancer Screening 1965 Pneumococcal Vaccine: 50+ Years (1 of 2 - PCV) 1984 Pneumococcal Vaccine: Pediatrics (0 to 5 Years) and At-Risk Patients (6 to 64 Years) (1 of 2 - PCV) 1984 Hepatitis B Vaccines (3 of 3 - 19+ 3-dose series) 07/19/2015 05/24/2015, 02/25/2007 Medicare Annual Wellness Visit 01/12/2022 Social Influencers [...] to complete this topic HIV Screening Completed 06/22/2024, 05/13/2021 Hepatitis C Screening Completed 06/22/2024 HIB Vaccines Aged Out No longer eligi [...] LAB CHEMISTRY METHOD 03/24/2024 9:20 AM EST [facility] eGFR 90 >=60 mL/min/1. 73m2 LAB CHEMISTRY METHOD 03/24/2024 9:20 AM EST [facility] Comment:Calculation based on the??Chronic Kidney Disease Epidemiology Collaboration (CKD-EPI) equation refit??without adjustment for race. Blood Venous blood specimen / Unknown Venipuncture / Unknown 03/24/2024 8:16 AM EST 03/24/2024 8:54 AM EST us [facility] LAB BLOOD ORDERABLES Final Resu lt [facility] ([facility] [address] [place] [address], from Last 3 Months or Most Recently [...] currently active code status orders. Care Teams Sizing Machine And Drier Operator Relationship Specialty Start Date End Date Danelle Wilkerson MD [address] [place] [phone] PCP - General Family Medicine 03/23/24
== END 2024-07-05 13:00 | disposition home or self-care (01) ==
LOC: HO.MAMMO 12:59
PROVIDERS: PCP Family Medicine; Visit Provider Family Medicine
DX: Z12.31 Encounter for screening mammogram for malignant neoplasm of breast (principal)
CPT/HCPCS: 77063; 77067

== ENCOUNTER → 2024-07-05 13:45 | Outpatient (BNV) | payer MEDICAID, SELFPAY | PROVIDERS: PCP Family Medicine; Visit Provider Internal Medicine | DX: Z12.31 Encounter for screening mammogram for malignant neoplasm of breast (principal) | CPT/HCPCS: 77063; 77067 ==